=== PATIENT | female | born 1980 | race African-American/Black ===

== ENCOUNTER 2018-09-08 20:08 | Emergency (ER) | payer MEDICAID, OTHER ==
[~2018-09-08] VITALS: Ht 160 cm; Wt 64.9 kg
--- NOTE | 2018-09-08 21:00 | NUR ---
patient came walking and as per patient she'S been coughing and with sore throat with pain in swallowing for 2days.[id number]. no respiratory distress noted .
--- NOTE | 2018-09-08 21:10 | NUR ---
: park at bedside examining patient .
[2018-09-08 22:03] VITALS: BP 99/55
--- NOTE | 2018-09-08 22:04 | NUR ---
Patient discharged to home in stable conditon. Written and verbal after care instructions given. Patient verbalizes understanding of instructions.went home with his son and with her belongings .v/s wnl no respiratory distress noted.
== END 2018-09-08 22:04 | disposition home or self-care (01) ==
LOC: ER 20:10
DX: B34.9 Viral infection, unspecified (principal); F17.200 Nicotine dependence, unspecified, uncomplicated
CPT/HCPCS: A4663

== ENCOUNTER 2019-02-05 10:40 | Emergency (ER) | payer MEDICAID ==
[~2019-02-05] VITALS: Ht 157.5 cm; Wt 63.5 kg
--- NOTE | 2019-02-05 11:14 | NUR ---
DR MATA AT THE BEDSIDE FOR MSE.
[2019-02-05 11:34] LABS: BASOPHILS % (AUTO) 0.5 % (0.0-2.0); EOSINOPHILS # (AUTO) 0.1 K/uL (0.0-0.7); EOSINOPHILS % (AUTO) 0.8 % (0.0-7.0); HEMATOCRIT 35.6 % (31.2-41.9); HEMOGLOBIN 11.8 g/dL (10.9-14.3); LYMPHOCYTES # (AUTO) 2.7 K/uL (20.0-40.0); LYMPHOCYTES % (AUTO) 36.1 % (20.5-51.5); MEAN CORPUSCULAR HEMOGLOBIN 31.1 uug (24.7-32.8); MEAN CORPUSCULAR HGB CONC 33 g/dL (32.3-35.6); MEAN CORPUSCULAR VOLUME 94.1 fL (75.5-95.3); MONOCYTES # (AUTO) 0.6 K/uL (2.0-10.0); MONOCYTES % (AUTO) 7.5 % (0.0-11.0); NEUTROPHILS # (AUTO) 4.1 K/uL (1.8-8.9); NEUTROPHILS % (AUTO) 55.1 % (38.5-71.5); PLATELET COUNT (AUTO) 205 K/uL (179-408); RED BLOOD CELL COUNT(AUTO) 3.79 MIL/uL (3.63-4.92); WHITE BLOOD COUNT (AUTO) 7.5 K/uL (3.8-11.8)
[2019-02-05 11:42] LABS: CREATININE 0.9 mg/dL (0.6-1.3); POTASSIUM 3.2 mmol/L (3.5-5.1)
[2019-02-05] MEDS ORDERED: AZITHROMYCIN 250 MG TABLET PO ONE (12:30)
[2019-02-05] MEDS ORDERED: AZITHROMYCIN 250 MG TABLET ONE (12:32)
--- NOTE | 2019-02-05 13:00 | NUR ---
Patient discharged to home in stable conditon. Written and verbal after care instructions given. Patient verbalizes understanding of instructions.
[2019-02-05 13:01] VITALS: BP 122/71
== END 2019-02-05 13:02 | disposition home or self-care (01) ==
LOC: ER 10:40
DX: R07.9 Chest pain, unspecified (principal); R05 Cough; F17.200 Nicotine dependence, unspecified, uncomplicated; J45.909 Unspecified asthma, uncomplicated
CPT/HCPCS: 36415; 70030-TC; 71045; 85025; 93005; A4663; Q0144

== ENCOUNTER 2021-06-02 17:30 | Emergency (ER) | payer MEDICAID ==
[~2021-06-02] VITALS: Ht 157.5 cm; Wt 68.0 kg
--- NOTE | 2021-06-02 17:56 | NUR ---
PT WAS SEEN IN WAITING ROOM, SHE WANTED TO BE SEEN RIGHT AWAY AND BECAUSE OF MD WORKLOAD - FULL BED OCCUPANCY AT THE TIME - WITH PTS STILL WAITING TO BE SEEN BY MD- ATTEMPT WAS MADE TO EXPLAIN TO HER THAT SHE CANNOT BE SEEN RIGHT AWAY BUT SOON POSSIBLE - WHICH DID NOT AGREE WITH HER SCHEDULE. SHE WAS PREVIOUSLY SEEN AT LOC[facility]IN [facility] AND WAS TO FOLLOW-UP W/IN A 72 HR PERIOD TO GET HIV TESTING AND PROPHYLAXIS WHICH IS DONE BY ABOUT 7PM TONIGHT. PT WAS THREATENING POSTING UNSATISFACTORY YELP REPORT AND WANTS TO FILE A COMPLAINT TO RN CERTIFIED LOW VISION THERAPIST. RN CERTIFIED LOW VISION THERAPIST HERE TO TALK TO PATIENT.
--- NOTE | 2021-06-02 18:51 | NUR ---
Dr [email or web address], medical screening exam in progress.
[2021-06-02] MEDS ORDERED: RALTEGRAVIR POTASSIUM 400 MG TABLET PO ONE ×2 (19:15→20:35)
[2021-06-02 19:40] LABS: HEMATOCRIT 37.6 % (31.2-41.9); MEAN CORPUSCULAR HEMOGLOBIN 32.7 uug (24.7-32.8); MEAN CORPUSCULAR VOLUME 96.5 fL (75.5-95.3); PLATELET COUNT (AUTO) 247 K/uL (179-408); POTASSIUM 3.9 mmol/L (3.5-5.1)
[2021-06-02 19:46] LABS: BILIRUBIN,DIRECT 0.1 mg/dL (0.0-0.2); BILIRUBIN,TOTAL 0.1 mg/dL (0.2-1.0); TOTAL PROTEIN, SERUM 7.7 g/dL (6.4-8.2)
[2021-06-02] MEDS ORDERED: LAMIVUDINE/ZIDOVUDIN 150-300MG TABLET PO ONE (20:15)
[2021-06-02] MEDS ORDERED: RALT400T PO (20:16)
[2021-06-02] MEDS ORDERED: LAMI1TAB PO (20:16)
[2021-06-02] MEDS ORDERED: LAMIVUDINE/ZIDOVUDIN 150-300MG TABLET ONE (20:35)
--- NOTE | 2021-06-02 20:39 | NUR ---
called patient taxi using taxi voucher provided by sign shop supervisor. Patient discharged to home in stable condition. Written and verbal after care instructions given. Patient verbalizes understanding of instructions. Stressed follow up or return to ER for worsening s/s.
== END 2021-06-02 20:47 | disposition home or self-care (01) ==
LOC: ER 17:32
DX: T74.21XD Adult sexual abuse, confirmed, subsequent encounter (principal); R51.9 Headache, unspecified; Z77.21 Contact with and (suspected) exposure to potentially hazardous body fluids; S09.90XD Unspecified injury of head, subsequent encounter; Y09 Assault by unspecified means
CPT/HCPCS: 36415; 70450; 85025; 86704; 86706; 86803; 87806; A4663

== ENCOUNTER 2021-12-19 01:39 | Emergency (ER) | payer MEDICAID ==
[~2021-12-19] VITALS: Ht 160 cm; Wt 68.0 kg
[~2021-12-19 01:39] MED LIST: LAMI1TAB PO; RALT400T PO
--- NOTE | 2021-12-19 01:59 | NUR ---
Dr. Martin on bedside for MSE.
--- NOTE | 2021-12-19 02:00 | NUR ---
Pt provided urine sample, sent to lab.
--- NOTE | 2021-12-19 02:00 | NUR ---
Pt c/o possible std x 2 days, c/o irritation on vaginal area.
[2021-12-19] MEDS ORDERED: CEFTRIAXONE 500 MG VIAL IM ONE (02:15)
[2021-12-19] MEDS ORDERED: ONDANSETRON ODT 4 MG TAB.RAPDIS SL ONE (02:15)
[2021-12-19] MEDS ORDERED: AZITHROMYCIN 250 MG TABLET PO ONE (02:15)
[2021-12-19 02:16] LABS: *BILIRUBIN,URIN NEGATIVE (NEGATIVE); *BLOOD, URINE NEGATIVE (NEGATIVE); *CLARITY,URINE CLEAR (CLEAR); *COLOR,URINE YELLOW (YELLOW); *KETONES,URINE NEGATIVE (NEGATIVE); *UROBILINOGEN,URINE 0.2 E.U./dl (NORMAL); LEUKOCYTE ESTERASE ,URINE NEGATIVE (NEGATIVE); NITRITE, URINE NEGATIVE (NEGATIVE); PH,URINE 5.5 (5.0-8.0); UGLUCOSE NEGATIVE (NEGATIVE)
[2021-12-19 02:18] LABS: *URINE HCG, QUAL NEGATIVE (NEGATIVE)
[2021-12-19] MEDS ORDERED: AZITHROMYCIN 250 MG TABLET ONE (02:28)
[2021-12-19] MEDS ORDERED: CEFTRIAXONE 500 MG VIAL ONE (02:28)
[2021-12-19] MEDS ORDERED: ONDANSETRON ODT 4 MG TAB.RAPDIS ONE (02:28)
[2021-12-19] MEDS ORDERED: LIDOCAINE HCL 1% 20 ML VIAL ONE (02:31)
[2021-12-19] MEDS ORDERED: diphenhydrAMINE 50 MG CAPSULE ONE (03:08)
--- NOTE | 2021-12-19 03:11 | NUR ---
Patient discharged to home in stable condition. Written and verbal after care instructions given. Patient verbalizes understanding of instructions. Stressed follow up or return to ER for worsening s/s. Patient ambulated fr the ER with steady gait. All belongings with patient.
[2021-12-19 03:12] VITALS: BP 105/58
[2021-12-19] MEDS ORDERED: diphenhydrAMINE 50 MG CAPSULE PO ONE (03:15)
[2021-12-22 00:06] LABS: *GC NAA Negative (Negative); *TRIC.VAG. NAA Negative (Negative)
== END 2021-12-19 03:12 | disposition home or self-care (01) ==
LOC: ER 01:39
DX: Z11.3 Encounter for screening for infections with a predominantly sexual mode of transmission (principal); N89.8 Other specified noninflammatory disorders of vagina
CPT/HCPCS: 81003; 84703; 87210; 87491; 96372; 99284; J0696; J3490; Q0163; A4663; Q0144; Q0162

== ENCOUNTER 2022-08-20 11:33 | Emergency (ER) | payer MEDICAID ==
[~2022-08-20] VITALS: Ht 160 cm; Wt 68.0 kg
[2022-08-20 12:21] LABS: HEMATOCRIT 38.3 % (31.2-41.9); MEAN CORPUSCULAR HEMOGLOBIN 31.7 uug (24.7-32.8); MEAN CORPUSCULAR VOLUME 94.3 fL (75.5-95.3); PLATELET COUNT (AUTO) 247 K/uL (179-408)
[2022-08-20 12:24] LABS: *URINE HCG, QUAL NEG (NEGATIVE)
[2022-08-20 12:32] LABS: POTASSIUM 4.4 mmol/L (3.5-5.1)
[2022-08-20 12:33] LABS: *BILIRUBIN,URIN NEGATIVE (NEGATIVE); *BLOOD, URINE NEGATIVE (NEGATIVE); *CLARITY,URINE CLEAR (CLEAR); *COLOR,URINE YELLOW (YELLOW); *KETONES,URINE NEGATIVE (NEGATIVE); LEUKOCYTE ESTERASE ,URINE NEGATIVE (NEGATIVE); NITRITE, URINE NEGATIVE (NEGATIVE); UGLUCOSE NEGATIVE (NEGATIVE)
[2022-08-20 12:43] LABS: BILIRUBIN,DIRECT 0.2 mg/dL (0.0-0.2); BILIRUBIN,TOTAL 0.6 mg/dL (0.2-1.0); TOTAL PROTEIN, SERUM 7.6 g/dL (6.4-8.2)
[2022-08-20] MEDS ORDERED: CEFTRIAXONE 500 MG VIAL ONE (13:09)
[2022-08-20] MEDS ORDERED: CEFTRIAXONE 500 MG VIAL IM ONE (13:15)
[2022-08-20] MEDS ORDERED: METRONIDAZOLE 500 MG TABLET PO ONE (13:15)
[2022-08-20] MEDS ORDERED: LIDOCAINE HCL 1% 20 ML VIAL IJ ONE (13:15)
[2022-08-20] MEDS ORDERED: DOXYCYCLINE HYCLATE 100 MG TABLET PO ONE (13:15)
[2022-08-20] MEDS ORDERED: DOXY100T2 PO (13:39)
[2022-08-20] MEDS ORDERED: METR500T PO (13:39)
--- NOTE | 2022-08-20 13:57 | NUR ---
Patient discharged to home in stable condition. Written and verbal after care instructions given. Patient verbalizes understanding of instructions. Stressed follow up or return to ER for worsening s/s.
[2022-08-22 04:06] LABS: *GC NAA Negative (Negative)
[2022-08-22 10:06] LABS: *TRIC.VAG. NAA Negative (Negative)
== END 2022-08-20 14:01 | disposition home or self-care (01) ==
LOC: ER 11:33
DX: N73.9 Female pelvic inflammatory disease, unspecified (principal); Z20.2 Contact with and (suspected) exposure to infections with a predominantly sexual mode of transmission
CPT/HCPCS: 99284; 80076; 80048; 81003; 84703; 83690; 85025; 36415; 96372; 87491; J0696; J3490; A4663

== ENCOUNTER 2023-04-05 16:04 | Emergency (ER) | payer MEDICAID ==
[~2023-04-05] VITALS: Ht 160 cm; Wt 68.0 kg
[~2023-04-05 16:04] MED LIST changes: +DOXY100T2 PO; +METR500T PO
[2023-04-05] MEDS ORDERED: CEFTRIAXONE 500 MG VIAL IM ONE (16:45)
[2023-04-05] MEDS ORDERED: CEFTRIAXONE 500 MG VIAL ONE (16:54)
[2023-04-05] MEDS ORDERED: LIDOCAINE HCL 1% 20 ML VIAL ONE (16:54)
[2023-04-05] MEDS ORDERED: FLUCONAZOLE 100 MG TABLET PO ONE (17:00)
[2023-04-05] MEDS ORDERED: FLUCONAZOLE 100 MG TABLET ONE (17:05)
[2023-04-05] MEDS ORDERED: DOXY100C5 PO (17:19)
[2023-04-05] MEDS ORDERED: METR500T PO (17:19)
[2023-04-05] MEDS ORDERED: IBUP-1955 PO (17:19)
[2023-04-05 17:46] LABS: *BILIRUBIN,URIN NEGATIVE (NEGATIVE); *CLARITY,URINE CLEAR (CLEAR); *COLOR,URINE YELLOW (YELLOW); *KETONES,URINE NEGATIVE (NEGATIVE); *PROTEIN,URINE NEGATIVE (NEGATIVE); *UROBILINOGEN,URINE 0.2 E.U./dl (NORMAL); LEUKOCYTE ESTERASE ,URINE NEGATIVE (NEGATIVE); NITRITE, URINE NEGATIVE (NEGATIVE); UGLUCOSE NEGATIVE (NEGATIVE)
[2023-04-05 17:47] LABS: *BLOOD, URINE 1+ (NEGATIVE); WBC,URINE 0-3 /HPF (0-3)
[2023-04-05 17:52] LABS: *URINE HCG, QUAL NEGATIVE (NEGATIVE)
[2023-04-05 18:19] VITALS: BP 120/76; TEMP 97.7; O2SAT 100
== END 2023-04-05 18:20 | disposition home or self-care (01) ==
LOC: ER 16:09
DX: N76.0 Acute vaginitis (principal); F17.210 Nicotine dependence, cigarettes, uncomplicated; Z20.2 Contact with and (suspected) exposure to infections with a predominantly sexual mode of transmission; Z20.822 Contact with and (suspected) exposure to COVID-19; Z79.1 Long term (current) use of non-steroidal anti-inflammatories (NSAID); Z79.2 Long term (current) use of antibiotics; Z79.899 Other long term (current) drug therapy
CPT/HCPCS: 99283; 87426; 86592; 87491; 81001; 84703; 96372; J0696; J3490; A4663

== ENCOUNTER 2024-04-02 15:25 | Emergency (ER) | payer MEDICAID ==
[~2024-04-02] VITALS: Ht 157.5 cm; Wt 68.0 kg
[~2024-04-02 15:25] MED LIST changes: +DOXY100C5 PO; +IBUP-1955 PO
[2024-04-02] MEDS: FLUCONAZOLE 100 MG TABLET PO ONE (18:45)
[2024-04-02 19:39] LABS: *URINE HCG, QUAL NEGATIVE (NEGATIVE)
[2024-04-02] MEDS ORDERED: CEFTRIAXONE 1 G VIAL ONE (19:39)
[2024-04-02] MEDS ORDERED: DOXYCYCLINE HYCLATE 100 MG TABLET ONE (19:39)
[2024-04-02] MEDS ORDERED: FLUCONAZOLE 100 MG TABLET ONE (19:39)
[2024-04-02] MEDS ORDERED: LIDOCAINE HCL 1% 20 ML VIAL ONE (19:40)
[2024-04-02] MEDS: CEFTRIAXONE 1 G VIAL IM ONE (19:40)
[2024-04-02] MEDS: DOXYCYCLINE HYCLATE 100 MG TABLET PO ONE (19:40)
[2024-04-02] MEDS ORDERED: DOXY100C5 PO (19:45)
[2024-04-02 20:10] VITALS: BP 120/68; TEMP 98; O2SAT 99
== END 2024-04-02 20:10 | disposition home or self-care (01) ==
LOC: ER 15:26
DX: Z11.3 Encounter for screening for infections with a predominantly sexual mode of transmission (principal); R10.2 Pelvic and perineal pain; F17.200 Nicotine dependence, unspecified, uncomplicated; Z79.1 Long term (current) use of non-steroidal anti-inflammatories (NSAID); Z79.899 Other long term (current) drug therapy
CPT/HCPCS: 99284; 84703; 87210; 96372; J0696; J3490; A4606; A4663